=== PATIENT | male | born 1990 | race Caucasian/White ===

== ENCOUNTER 2019-06-09 03:04 | Emergency (ER) | payer BC ==
--- NOTE | 2019-06-09 04:44 | EDM.PDOC ---
ED HPI GENERAL MEDICAL PROBLEM - General Chief Complaint: Skin Complaint Stated Complaint: BACK DISCOMFORT AND SUNBURN Time Seen by Provider: 06/09/19 04:30 - History of Present Illness INITIAL COMMENTS - FREE TEXT/NARRATIVE: Healthy 29 yo presents after episode of back discomfort and difficulty breathing Was out in sun today, sustain back sunburn to back and arms. Tonight have sensation of discomfort in the back and transient difficulty breathing. Feels normal now. No cough. No chest pain. No hx of anxiety Family quite worried about symptoms prompting ED visit back Pain Score (Numeric/FACES): 0 - Related Data Allergies Allergy/AdvReac Type Severity Reaction Status Date / Time No Known Allergies Allergy Verified 06/09/19 03:48 Home Meds: Home Meds NK [No Known Home Meds] 06/09/19 [History] Past Medical History - Past Surgical History HEENT Surgical History: Reports: Adenoidectomy, Tonsillectomy Social & Family History - Tobacco Use Smoking Status *Q: Never Smoker - Caffeine Use Caffeine Use: Reports: Coffee - Recreational Drug Use Recreational Drug Use: No ED ROS GENERAL - Review of Systems Review Of Systems: See Below Constitutional: Reports: No Symptoms HEENT: Reports: No Symptoms Respiratory: Reports: Shortness of Breath Cardiovascular: Reports: No Symptoms Endocrine: Reports: No Symptoms GI/Abdominal: Reports: No Symptoms : Reports: No Symptoms Musculoskeletal: Reports: No Symptoms Skin: Reports: Burn(s) Neurological: Reports: No Symptoms Psychiatric: Reports: No Symptoms Hematologic/Lymphatic: Reports: No Symptoms Immunologic: Reports: No Symptoms ED EXAM, SKIN/RASH Exam: See Below Exam Limited By: No Limitations General Appearance: Alert, No Apparent Distress Ears: Normal External Exam Nose: Normal Inspection, Nasal Flaring Head: Atraumatic, Normocephalic Respiratory/Chest: No Respiratory Distress, Lungs Clear Cardiovascular: Regular Rate, Rhythm GI/Abdominal: Normal Bowel Sounds, Soft, Non-Tender Back Exam: Normal Inspection Extremities: Normal Inspection Neurological: Alert, Oriented Psychiatric: Normal Affect, Normal Mood Skin: Other (sunburn back and upper arms bilaterally) Course - Vital Signs Last Recorded V/S: Last Vital Signs Temp 36.2 C 06/09/19 03:46 Pulse 78 06/09/19 03:46 Resp 20 06/09/19 03:46 BP 132/78 06/09/19 03:46 Pulse Ox 97 06/09/19 03:46 - Re-Assessments/Exams Free Text/Narrative Re-Assessment/Exam: 29 yo presents with transient SOB and back discomfort after sustaining sunburn Feels well now Normal vitals. Patient not terribly anxious but lots of anxiety amongst family members Suggested screening EKG but declined Safe for discharge, will return for recurrent symptoms. 06/09/19 04:59 Departure - Departure Time of Disposition: 04:42 Disposition: Home, Self-Care 01 Clinical Impression: Sunburn - Discharge Information *PRESCRIPTION DRUG MONITORING PROGRAM REVIEWED*: No *COPY OF PRESCRIPTION DRUG MONITORING REPORT IN PATIENT SINDY: No Instructions: Sunburn, Adult, [id number] Referrals: PCP,None [Primary Care Provider] - Forms: ED Department Discharge Additional Instructions: Please return to the ER if your breathing issues return and persist.
== END 2019-06-09 04:52 | disposition home or self-care (01) ==
LOC: JP.ED 03:04
DX: L55.9 Sunburn, unspecified (principal)
CPT/HCPCS: 99283